=== PATIENT | female | born 1990 | race African-American/Black ===

== ENCOUNTER 2019-04-02 14:37 | Emergency (ER) | payer SELFPAY ==
[~2019-04-02] VITALS: Ht 170.2 cm; Wt 61.0 kg
[2019-04-02] MEDS ORDERED: AMOXICILLIN875 MG PO (15:18)
[2019-04-02 15:30] VITALS: BP 116/80
== END 2019-04-02 15:30 | disposition home or self-care (01) | DRG 153 ==
LOC: ED 14:37
DX: J02.9 Acute pharyngitis, unspecified (principal); R50.9 Fever, unspecified; H66.90 Otitis media, unspecified, unspecified ear; B34.9 Viral infection, unspecified

== ENCOUNTER 2019-05-11 | Emergency (ER) | payer SELFPAY ==
[~2019-05-11] MED LIST: AMOXICILLIN875 MG PO
[2019-05-11 11:14] LABS: HEMOGLOBIN 12.3 g/dl (12.0-16.0); IMMATURE GRANULOCYTES 0.3 % (0.0-5.0); MEAN CELL VOLUME 90.9 fL CALC (80.0-100.0); MEAN CORPUSCULAR HGB 30.2 pG CALC (26.0-32.0); MEAN CORPUSCULAR HGB CONC 33.2 g/L CALC (32.0-36.0); NEUT# 1.51 thou/uL (2.00-7.15); RED BLOOD COUNT 4.07 mill/uL (4.20-5.60)
[2019-05-11 11:35] LABS: ALBUMIN 4.5 g/dL (3.2-5.0); ALKALINE PHOSPHATASE 52 u/l (38-126); ANION GAP 13 (6-22 (CALC)); BILIRUBIN, TOTAL 0.7 mg/dL (0.0-1.4); BUN 15 mg/dL (7-17); BUN/CREATININE RATIO 26 (12-20 (CALC)); CARBON DIOXIDE 23 mmol/l (22-30); CHLORIDE 108 mmol/l (95-108); CREATININE 0.6 mg/dL (0.5-1.0); GFR > 60 ML/MIN (>=60 (CALC)); GFR FOR AFR.AMER. > 60 ML/MIN (>=60 (CALC)); POTASSIUM 4.2 mmol/l (3.5-5.1); SGOT/AST 20 u/l (14-36); SODIUM 140 mmol/l (137-146); TOTAL PROTEIN 8.5 g/dL (6.3-8.2)
[2019-05-11 12:07] LABS: ETHYL ALCOHOL 0 mg/dl (0-30); MAGNESIUM 1.7 mg/dL (1.6-2.3)
[2019-05-11 12:22] LABS: ACT PARTIAL THROMBO TIME 26.8 SECONDS (20.0-32.5); PROTHROMBIN TIME 10.3 SECONDS (9.0-12.5)
[2019-05-11 12:38] LABS: TSH, 3RD GENERATION 1.05 uIU/mL (0.47 - 4.68)
[2019-05-11 13:25] LABS: URINE BILIRUBIN - DIPSTICK NEGATIVE (NEGATIVE); URINE BLOOD DIPSTICK NEGATIVE (NEGATIVE); URINE COLOR YELLOW; URINE GLUCOSE - DIPSTICK NEGATIVE (NEGATIVE); URINE KETONE NEGATIVE (NEGATIVE); URINE LEUK ESTERASE NEGATIVE (NEGATIVE); URINE NITRITE - DIPSTICK NEGATIVE (Negative); URINE PH 5.5 (4.5-8.0); URINE PROTEIN - DIPSTICK NEGATIVE (NEG-TRACE); URINE UROBILINOGEN - DIPSTICK 0.2 E.U./dL (0.2)
[2019-05-11 13:36] LABS: BARBITURATES NEGATIVE (NEGATIVE); COCAINE NEGATIVE (NEGATIVE); METHADONE NEGATIVE (NEGATIVE); OXCYCODONE NEGATIVE (NEGATIVE); TETRAHYDROCANNABIONOL POSITIVE (NEGATIVE); TRICYLIC ANTIDEPRESSANTS NEGATIVE (NEGATIVE)
== END 2019-05-11 14:58 | disposition short-term general hospital (02) | DRG 101 ==
DX: G40.401 Other generalized epilepsy and epileptic syndromes, not intractable, with status epilepticus (principal); F17.200 Nicotine dependence, unspecified, uncomplicated; Z96.89 Presence of other specified functional implants; Z91.19 Patient's noncompliance with other medical treatment and regimen
CPT/HCPCS: J1953; J2060

== ENCOUNTER 2020-01-08 17:20 | Emergency (ER) | payer BC ==
[~2020-01-08] VITALS: Ht 170.2 cm; Wt 70.0 kg
[2020-01-08 18:00] VITALS: BP 113/69
[2020-01-08] MEDS ORDERED: BACTRIM DS1 TAB PO (18:15)
[2020-01-08] MEDS ORDERED: KEFLEX500 M1 PO (18:15)
[2020-01-08] MEDS ORDERED: LORTAB 1010 MG PO (18:15)
[2020-01-09] MEDS ORDERED: ZOFRAN4 MG/TAB PO (15:35)
== END 2020-01-08 18:33 | disposition home or self-care (01) | DRG 603 ==
LOC: ED 17:20
PROC: 0H98XZZ Drainage of Buttock Skin, External Approach (ICD-10-PCS; principal; 2020-01-08)
DX: L05.01 Pilonidal cyst with abscess (principal); G40.909 Epilepsy, unspecified, not intractable, without status epilepticus; F17.200 Nicotine dependence, unspecified, uncomplicated

== ENCOUNTER 2020-01-09 15:11 | Emergency (ER) | payer BC ==
[~2020-01-09] VITALS: Ht 170.2 cm; Wt 70.0 kg
[~2020-01-09 15:11] MED LIST changes: +BACTRIM DS1 TAB PO; +KEFLEX500 M1 PO; +LORTAB 1010 MG PO
[2020-01-09] MEDS ORDERED: ZOFRAN4 MG/TAB PO (15:35)
[2020-01-09 15:36] VITALS: BP 117/61
== END 2020-01-09 15:51 | disposition home or self-care (01) | DRG 951 ==
LOC: ED 15:11
DX: Z48.01 Encounter for change or removal of surgical wound dressing (principal); T36.96XA Underdosing of unspecified systemic antibiotic, initial encounter; F17.200 Nicotine dependence, unspecified, uncomplicated; Z91.128 Patient's intentional underdosing of medication regimen for other reason

== ENCOUNTER 2020-01-11 16:03 | Emergency (ER) | payer BC ==
[~2020-01-11] VITALS: Ht 170.2 cm; Wt 70.0 kg
[~2020-01-11 16:03] MED LIST changes: +ZOFRAN4 MG/TAB PO
[2020-01-11 16:43] VITALS: BP 109/60
== END 2020-01-11 16:43 | disposition home or self-care (01) | DRG 951 ==
LOC: ED 16:03
DX: Z48.01 Encounter for change or removal of surgical wound dressing (principal); G40.909 Epilepsy, unspecified, not intractable, without status epilepticus; F17.200 Nicotine dependence, unspecified, uncomplicated

== ENCOUNTER 2020-12-30 14:43 | Emergency (ER) | payer BC ==
[~2020-12-30] VITALS: Ht 170.2 cm; Wt 68.0 kg
[2020-12-30 18:48] VITALS: BP 110/70
== END 2020-12-30 18:48 | disposition home or self-care (01) | DRG 866 ==
LOC: ED 14:43
DX: B34.9 Viral infection, unspecified (principal); G40.909 Epilepsy, unspecified, not intractable, without status epilepticus; F17.200 Nicotine dependence, unspecified, uncomplicated; Z20.822 Contact with and (suspected) exposure to COVID-19

== ENCOUNTER 2021-01-16 02:36 | Emergency (ER) | payer BC ==
[~2021-01-16] VITALS: Ht 170.2 cm; Wt 65.9 kg
[2021-01-16] MEDS ORDERED: ZOFRAN4 MG/TAB PO (05:52)
[2021-01-16] MEDS ORDERED: AMOX/K CLAV875 M1 PO (05:52)
[2021-01-16] MEDS ORDERED: ULTRAM50 MG PO (05:52)
[2021-01-16 06:25] LABS: HEMATOCRIT 36.7 % (37.0-47.0); MEAN CORPUSCULAR HGB 30.1 pG CALC (26.0-32.0); MEAN CORPUSCULAR HGB CONC 32.7 g/dL CAL (32.0-36.0); NEUT# 2.06 thou/uL (2.00-7.15); RED BLOOD COUNT 3.99 mill/uL (4.20-5.60); RED CELL DISTRI WIDTH 13.1 % (11.5-15.5)
[2021-01-16 06:26] LABS: ALBUMIN 4.4 g/dL (3.2-5.0); ALKALINE PHOSPHATASE 45 u/l (38-126); ANION GAP 13 (6-22 (CALC)); BILIRUBIN, TOTAL 0.9 mg/dL (0.0-1.4); BUN 11 mg/dL (7-17); BUN/CREATININE RATIO 17 (12-20 (CALC)); CARBON DIOXIDE 23 mmol/l (22-30); CHLORIDE 105 mmol/l (95-108); CREATININE 0.7 mg/dL (0.5-1.0); GFR > 60 ML/MIN (>=60 (CALC)); GFR FOR AFR.AMER. > 60 ML/MIN (>=60 (CALC)); POTASSIUM 4.1 mmol/l (3.5-5.1); SGOT/AST 50 u/l (14-36); SODIUM 136 mmol/l (137-146); TOTAL PROTEIN 7.7 g/dL (6.3-8.2)
[2021-01-16 07:27] VITALS: BP 103/66
== END 2021-01-16 07:40 | disposition home or self-care (01) | DRG 153 ==
LOC: ED 02:36
DX: J32.9 Chronic sinusitis, unspecified (principal); G40.909 Epilepsy, unspecified, not intractable, without status epilepticus; F17.200 Nicotine dependence, unspecified, uncomplicated; Z20.822 Contact with and (suspected) exposure to COVID-19

== ENCOUNTER 2021-03-06 16:15 | Emergency (ER) | payer BC ==
[~2021-03-06] VITALS: Ht 170.2 cm; Wt 65.9 kg
[~2021-03-06 16:15] MED LIST changes: +AMOX/K CLAV875 M1 PO; +ULTRAM50 MG PO
[2021-03-06 17:37] LABS: HEMATOCRIT 34.4 % (37.0-47.0); HEMOGLOBIN 11.2 g/dl (12.0-16.0); MEAN CORPUSCULAR HGB 29.6 pG CALC (26.0-32.0); MEAN CORPUSCULAR HGB CONC 32.6 g/dL CAL (32.0-36.0); NEUT# 2.06 thou/uL (2.00-7.15); RED BLOOD COUNT 3.78 mill/uL (4.20-5.60); RED CELL DISTRI WIDTH 12.8 % (11.5-15.5)
[2021-03-06 17:46] LABS: ALBUMIN 4.3 g/dL (3.2-5.0); ALKALINE PHOSPHATASE 44 u/l (38-126); ANION GAP 9 (6-22 (CALC)); BILIRUBIN, TOTAL 0.6 mg/dL (0.0-1.4); BUN 14 mg/dL (7-17); BUN/CREATININE RATIO 14 (12-20 (CALC)); CARBON DIOXIDE 27 mmol/l (22-30); CHLORIDE 106 mmol/l (95-108); GFR > 60 ML/MIN (>=60 (CALC)); GFR FOR AFR.AMER. > 60 ML/MIN (>=60 (CALC)); POTASSIUM 4.1 mmol/l (3.5-5.1); SGOT/AST 21 u/l (14-36); SODIUM 138 mmol/l (137-146); TOTAL PROTEIN 7.9 g/dL (6.3-8.2)
[2021-03-06 17:58] LABS: MYOGLOBIN 20 ng/mL (0 - 62)
[2021-03-06] MEDS ORDERED: NAPROXEN500 MG PO (18:41)
[2021-03-06 19:38] VITALS: BP 122/71
== END 2021-03-06 19:20 | disposition home or self-care (01) | DRG 313 ==
LOC: ED 16:15
PROVIDERS: Emergency Medicine
DX: R07.89 Other chest pain (principal); G40.909 Epilepsy, unspecified, not intractable, without status epilepticus; F17.210 Nicotine dependence, cigarettes, uncomplicated; F17.200 Nicotine dependence, unspecified, uncomplicated

== ENCOUNTER 2021-05-04 16:47 | Emergency (ER) | payer BC ==
[~2021-05-04] VITALS: Ht 170.2 cm; Wt 63.6 kg
[~2021-05-04 16:47] MED LIST changes: +NAPROXEN500 MG PO
[2021-05-04] MEDS ORDERED: TORADOL PO (19:10)
[2021-05-04 19:43] VITALS: BP 156/70
== END 2021-05-04 19:43 | disposition home or self-care (01) | DRG 179 ==
LOC: ED 16:47
DX: U07.1 COVID-19 (principal); G40.909 Epilepsy, unspecified, not intractable, without status epilepticus; F17.210 Nicotine dependence, cigarettes, uncomplicated

== ENCOUNTER → 2022-06-18 | Emergency (ER) | payer SELFPAY ==
[~2022-06-18] VITALS: Ht 170.2 cm; Wt 58.8 kg
[2022-06-18] VITALS (11 sets, daily range): BP systolic 93–110; BP diastolic 48–66
[~2022-06-18] MED LIST changes: +ONDANSETRON4 MG PO; +TAMIFLU SUSP 6MG/ML PO; +TORADOL PO
== END | disposition home or self-care (01) | DRG 866 ==
LOC: ED 15:49
DX: B34.9 Viral infection, unspecified (principal); Z20.822 Contact with and (suspected) exposure to COVID-19; G40.909 Epilepsy, unspecified, not intractable, without status epilepticus; F17.210 Nicotine dependence, cigarettes, uncomplicated

== ENCOUNTER 2022-06-20 14:36 | Emergency (ER) | payer SELFPAY ==
[2022-06-20] VITALS (18 sets, daily range): BP systolic 89–115; BP diastolic 51–81
[~2022-06-20] VITALS: Ht 170.2 cm; Wt 58.0 kg
[~2022-06-20 14:36] MED LIST changes: -ONDANSETRON4 MG PO
[2022-06-20 17:29] LABS: BASO% 0.7 % (0-3); EOS% 0.3 % (0-8); HEMOGLOBIN 13.1 g/dl (12.0-16.0); IMMATURE GRANULOCYTES 0.3 % (0.0-5.0); LYMPH% 35.8 % (15-41); MEAN CELL VOLUME 90.1 fL CALC (80.0-100.0); MEAN CORPUSCULAR HGB 29.5 pG CALC (26.0-32.0); MEAN CORPUSCULAR HGB CONC 32.8 g/dL CAL (32.0-36.0); MONO% 15.4 % (2-13); NEUT# 1.42 thou/uL (2.00-7.15); NEUT% 47.5 % (42-76); RED BLOOD COUNT 4.44 mill/uL (4.20-5.60); RED CELL DISTRI WIDTH 11.9 % (11.5-15.5)
[2022-06-20 17:39] LABS: ALBUMIN 4.5 g/dL (3.2-5.0); ALKALINE PHOSPHATASE 36 u/l (38-126); ANION GAP 13 (6-22 (CALC)); BUN 12 mg/dL (7-17); BUN/CREATININE RATIO 20 (12-20 (CALC)); C-REACTIVE PROTEIN 0.7 mg/dL (0-0.9); CARBON DIOXIDE 29 mmol/l (22-30); CHLORIDE 98 mmol/l (95-108); CREATININE 0.6 mg/dL (0.5-1.0); GFR FOR AFR.AMER. > 60 ML/MIN (>=60 (CALC)); GFR OTHER RACES > 60 ML/MIN (>=60 (CALC)); POTASSIUM 4.1 mmol/l (3.5-5.1); SODIUM 136 mmol/l (137-146); TOTAL PROTEIN 8.4 g/dL (6.3-8.2)
[2022-06-20 17:41] LABS: BILIRUBIN, TOTAL 1.4 mg/dL (0.02-1.3); SGOT/AST 52 u/l (14-36)
[2022-06-20] MEDS ORDERED: ONDANSETRON4 MG PO (19:43)
== END 2022-06-20 20:10 | disposition home or self-care (01) | DRG 866 ==
LOC: ED 14:36
PROVIDERS: Nurse Practitioner
DX: B34.9 Viral infection, unspecified (principal); Z20.822 Contact with and (suspected) exposure to COVID-19; F17.210 Nicotine dependence, cigarettes, uncomplicated; G40.909 Epilepsy, unspecified, not intractable, without status epilepticus

== ENCOUNTER 2022-11-26 10:50 | Emergency (ER) | payer BC ==
[~2022-11-26] VITALS: Ht 170.2 cm; Wt 56.8 kg
[~2022-11-26 10:50] MED LIST changes: +ONDANSETRON4 MG PO
[2022-11-26 11:12] VITALS: BP 132/100
[2022-11-26 11:30] VITALS: BP 98/60
[2022-11-26 11:45] VITALS: BP 111/78
[2022-11-26 11:54] LABS: URINE BILIRUBIN - DIPSTICK NEGATIVE (NEGATIVE); URINE BLOOD DIPSTICK NEGATIVE (NEGATIVE); URINE CLARITY SL CLOUDY; URINE COLOR YELLOW; URINE GLUCOSE - DIPSTICK NEGATIVE (NEGATIVE); URINE KETONE NEGATIVE (NEGATIVE); URINE LEUK ESTERASE NEGATIVE (Negative); URINE NITRITE - DIPSTICK NEGATIVE (Negative); URINE PH 6.5 (4.5-8.0); URINE PROTEIN - DIPSTICK NEGATIVE (NEG-TRACE); URINE SPECIFIC GRAVITY <=1.005; URINE UROBILINOGEN - DIPSTICK 0.2 E.U./dL (0.2)
[2022-11-26] MEDS ORDERED: METHOCARBAMOL500 MG PO (16:45)
[2022-11-26] MEDS ORDERED: IBUPROFEN600 MG PO (16:45)
[2022-11-26 16:47] VITALS: BP 111/78
== END 2022-11-26 17:00 | disposition home or self-care (01) | DRG 552 ==
LOC: ED 10:50
PROVIDERS: Family Medicine
DX: M54.50 Low back pain, unspecified (principal); G40.909 Epilepsy, unspecified, not intractable, without status epilepticus; F17.210 Nicotine dependence, cigarettes, uncomplicated